=== PATIENT | female | born 1940 | race African-American/Black ===

== ENCOUNTER 2021-02-01 22:28 | Inpatient (IN) | payer OTHER, MEDICAID ==
[~2021-02-01] VITALS: Ht 165.1 cm; Wt 89.2 kg
[2021-02-01] MEDS ORDERED: SODIUM CHLORIDE 0.9% 1,000 ML IV ONE (23:15)
[2021-02-01] MEDS ORDERED: ASPIRIN 81MG TABLET PO ONE (23:30)
[2021-02-01] MEDS: NITROGLYCERIN 0.4MG TABLET SL SL PRN (23:52)
[2021-02-02] VITALS (10 sets, daily range): BP systolic 117–153; BP diastolic 53–81
[2021-02-02 00:11] LABS: BASOPHILS % 0.9 % (0.0-2.0); EOSINOPHILS % 0.9 % (0.0-5.0); HEMATOCRIT. 34.2 % (36.0-48.0); MEAN CORPUSCULAR HEMOGLOBIN 30.5 pg (28.0-32.0); MEAN CORPUSCULAR VOLUME 86.7 fL (81.0-99.0); MEAN PLATELET VOLUME 10.4 fl (7.4-10.4); MONOCYTES % 7.3 % (2.0-8.0); NEUTROPHILS % 48.9 % (40.0-76.0); PLATELET 224 x1000/uL (130-400); RED BLOOD CELL COUNT 3.94 mill/uL (4.2-5.4); RED CELL DISTRIBUTION WIDTH 15.3 % (11.6-14.6)
[2021-02-02 00:25] LABS: CHLORIDE 110 mEq/L (98-107)
[2021-02-02 00:30] LABS: D-DIMER 8.43 mg/L FEU (<0.50); PARTIAL THROMBOPLASTIN TIME 27.2 sec (23.4-31.0); PROTHROMBIN TIME 10.3 sec (9.6-11.0)
[2021-02-02 00:33] LABS: BETA HYDROXYBUTYRATE 0.1 mMol/L (0.0-0.3)
[2021-02-02] MEDS ORDERED: ENOXAPARIN 80MG/0.8ML SYR SUBCUT ONE (01:15)
[2021-02-02] MEDS ORDERED: GUAIFENESIN 200MG/10ML SUGAR FREE UDC PO PRN (02:45)
[2021-02-02] MEDS ORDERED: CLONIDINE 0.1MG TABLET PO PRN (02:45)
[2021-02-02] MEDS ORDERED: DIPHENHYDRAMINE 50MG/ML VIAL IV PRN (02:45)
[2021-02-02] MEDS ORDERED: ACETAMINOPHEN 325MG TABLET PO PRN (02:45)
[2021-02-02] MEDS ORDERED: ZOLPIDEM TARTRATE 5MG TABLET PO PRN (02:45)
[2021-02-02] MEDS ORDERED: DEXTROSE 50% WATER 50ML SYRINGE IV PRN (02:45)
[2021-02-02] MEDS ORDERED: MAGNESIUM/ALUMINUM HYDROXIDE/SIMETHICONE 30ML UDC PO PRN (02:45)
[2021-02-02] MEDS ORDERED: ONDANSETRON HCL 4MG/2ML INJ IV PRN (02:45)
[2021-02-02] MEDS ORDERED: HYDRALAZINE 20MG/ML VIAL IV PRN (02:45)
[2021-02-02] MEDS: OMEPRAZOLE 20MG CAPSULE EXTENDED RELEASE PO SCH ×2 (06:30→21:00)
[2021-02-02] MEDS: BLOOD SUGAR DIAGNOSTIC STRIP TEST SCH ×4 (06:30→21:52)
[2021-02-02] MEDS: SODIUM CHLORIDE 0.9% INJ 3ML FLUSH IVF SCH ×3 (06:30→22:29)
[2021-02-02] MEDS: INSULIN LISPRO 100 UNITS/ML SUBCUT SCH ×4 (07:52→21:00)
[2021-02-02] MEDS: AMLODIPINE 5MG TABLET PO SCH ×2 (08:44→21:00)
[2021-02-02] MEDS ORDERED: ENOXAPARIN 30MG/0.3ML SYR SUBCUT SCH (09:00)
[2021-02-02] MEDS ORDERED: IOHEXOL-350 100 ML BOTTLE ONE (09:46)
[2021-02-02] MEDS: INSULIN GLARGINE UD 100 UNITS/ML SYR SUBCUT SCH (10:51)
[2021-02-02] MEDS: LOSARTAN POTASSIUM 50 MG TABLET PO SCH (10:52)
[2021-02-02] MEDS: ASPIRIN 81MG EC TABLET PO SCH (11:50)
[2021-02-02] MEDS: METOPROLOL TARTRATE 25MG TABLET PO SCH ×2 (11:51→21:00)
[2021-02-02] MEDS ORDERED: ENOXAPARIN 30MG/0.3ML SYR SUBCUT NR (12:00)
[2021-02-02] MEDS ORDERED: METF-414 MT (16:19)
[2021-02-02] MEDS ORDERED: METO-385 MT (16:22)
[2021-02-02] MEDS ORDERED: KEPP500 MT (16:22)
[2021-02-02] MEDS ORDERED: LEVETIRACETAM 500MG TABLET PO NR (16:45)
[2021-02-02] MEDS: ATORVASTATIN CALCIUM 40MG TABLET PO SCH (21:00)
[2021-02-02] MEDS: LEVETIRACETAM 500MG TABLET PO SCH (21:00)
[2021-02-03] VITALS (12 sets, daily range): BP systolic 120–150; BP diastolic 57–83
[2021-02-03] MEDS: OMEPRAZOLE 20MG CAPSULE EXTENDED RELEASE PO SCH ×2 (06:39→20:38)
[2021-02-03] MEDS: SODIUM CHLORIDE 0.9% INJ 3ML FLUSH IVF SCH ×3 (06:39→22:59)
[2021-02-03] MEDS: BLOOD SUGAR DIAGNOSTIC STRIP TEST SCH ×4 (06:49→20:42)
[2021-02-03] MEDS: INSULIN LISPRO 100 UNITS/ML SUBCUT SCH ×4 (08:35→20:41)
[2021-02-03] MEDS: ENOXAPARIN 100MG/ML SYR SUBCUT SCH ×2 (08:36→20:41)
[2021-02-03] MEDS: ACETAMINOPHEN 325MG TABLET PO PRN (08:37)
[2021-02-03] MEDS: LEVETIRACETAM 500MG TABLET PO SCH ×2 (08:37→20:38)
[2021-02-03] MEDS: ASPIRIN 81MG EC TABLET PO SCH (08:37)
[2021-02-03] MEDS: LOSARTAN POTASSIUM 50 MG TABLET PO SCH (08:38)
[2021-02-03] MEDS: AMLODIPINE 5MG TABLET PO SCH ×2 (08:39→20:39)
[2021-02-03] MEDS: METOPROLOL TARTRATE 25MG TABLET PO SCH ×2 (08:39→20:39)
[2021-02-03] MEDS: INSULIN GLARGINE UD 100 UNITS/ML SYR SUBCUT SCH (10:00)
[2021-02-03] MEDS: ATORVASTATIN CALCIUM 40MG TABLET PO SCH (20:38)
[2021-02-04] VITALS (21 sets, daily range): BP systolic 101–147; BP diastolic 54–84
[2021-02-04] MEDS: SODIUM CHLORIDE 0.9% INJ 3ML FLUSH IVF SCH ×2 (06:43→14:08)
[2021-02-04] MEDS: OMEPRAZOLE 20MG CAPSULE EXTENDED RELEASE PO SCH ×2 (06:43→20:34)
[2021-02-04] MEDS: BLOOD SUGAR DIAGNOSTIC STRIP TEST SCH ×4 (06:43→20:24)
[2021-02-04 06:46] LABS: BASOPHILS % 0.3 % (0.0-2.0); HEMATOCRIT. 35.6 % (36.0-48.0); LYMPHOCYTES % 39.8 % (20.0-50.0); MEAN CORPUSCULAR VOLUME 86.2 fL (81.0-99.0); MEAN PLATELET VOLUME 10.4 fl (7.4-10.4); MONOCYTES % 10.2 % (2.0-8.0); NEUTROPHILS % 48.7 % (40.0-76.0); PLATELET 206 x1000/uL (130-400); RED BLOOD CELL COUNT 4.13 mill/uL (4.2-5.4); RED CELL DISTRIBUTION WIDTH 15.2 % (11.6-14.6)
[2021-02-04] MEDS: ENOXAPARIN 100MG/ML SYR SUBCUT SCH ×2 (08:35→20:35)
[2021-02-04] MEDS: LOSARTAN POTASSIUM 50 MG TABLET PO SCH (08:36)
[2021-02-04] MEDS: ACETAMINOPHEN 325MG TABLET PO PRN ×2 (08:36→17:04)
[2021-02-04] MEDS: ASPIRIN 81MG EC TABLET PO SCH (08:36)
[2021-02-04] MEDS: LEVETIRACETAM 500MG TABLET PO SCH ×2 (08:37→20:34)
[2021-02-04] MEDS: METOPROLOL TARTRATE 25MG TABLET PO SCH ×2 (08:37→20:35)
[2021-02-04] MEDS: AMLODIPINE 5MG TABLET PO SCH ×2 (08:37→20:34)
[2021-02-04] MEDS: INSULIN LISPRO 100 UNITS/ML SUBCUT SCH ×4 (08:38→20:31)
[2021-02-04] MEDS ORDERED: INSULIN GLARGINE UD 100 UNITS/ML SYR SUBCUT SCH (13:00)
[2021-02-04] MEDS: ATORVASTATIN CALCIUM 40MG TABLET PO SCH (20:33)
[2021-02-04] MEDS: NITROGLYCERIN 0.4MG TABLET SL SL PRN (21:55)
== END 2021-02-04 23:26 | disposition short-term general hospital (02) | DRG 281 ==
LOC: ER 22:28 → 3WST 02-02 01:25 → ENRESERV 02-02 02:16
PROVIDERS: ADMIT Internal Medicine; ATTEND Internal Medicine
DX: I21.4 Non-ST elevation (NSTEMI) myocardial infarction (principal); N17.9 Acute kidney failure, unspecified; E11.65 Type 2 diabetes mellitus with hyperglycemia; E04.1 Nontoxic single thyroid nodule; E66.9 Obesity, unspecified; R59.0 Localized enlarged lymph nodes; G40.909 Epilepsy, unspecified, not intractable, without status epilepticus; Z20.822 Contact with and (suspected) exposure to COVID-19; R07.89 Other chest pain; I11.9 Hypertensive heart disease without heart failure; N20.0 Calculus of kidney; N28.89 Other specified disorders of kidney and ureter; Z82.49 Family history of ischemic heart disease and other diseases of the circulatory system; Z83.3 Family history of diabetes mellitus; Z68.32 Body mass index [BMI] 32.0-32.9, adult
CPT/HCPCS: 36415; 71045; 71275; 80048; 80053; 82010; 82962; 83036; 83880; 84484; 85025; 85379; 87426; 93005; 93306; 99291; J1650; J1815; J7030; Q9967

== ENCOUNTER 2021-04-18 10:54 | Emergency (ER) | payer OTHER, MEDICAID ==
[~2021-04-18] VITALS: Ht 165.1 cm; Wt 59.0 kg
[~2021-04-18 10:54] MED LIST: KEPP500 MT; METF-414 MT; METO-385 MT
[2021-04-18 12:15] LABS: BASOPHILS % 0.7 % (0.0-2.0); CHLORIDE 108 mEq/L (98-107); EOSINOPHILS % 0.8 % (0.0-5.0); HEMATOCRIT. 35.5 % (36.0-48.0); HEMOGLOBIN. 12.1 g/dL (12.0-16.0); LYMPHOCYTES % 28.3 % (20.0-50.0); MEAN CORPUSCULAR VOLUME 88.2 fL (81.0-99.0); MEAN PLATELET VOLUME 9.8 fl (7.4-10.4); MONOCYTES % 6.5 % (2.0-8.0); NEUTROPHILS % 63.7 % (40.0-76.0); PLATELET 314 x1000/uL (130-400); RED BLOOD CELL COUNT 4.03 mill/uL (4.2-5.4); RED CELL DISTRIBUTION WIDTH 15.6 % (11.6-14.6)
[2021-04-18 12:18] LABS: PROTHROMBIN TIME 10.9 sec (9.6-11.0)
[2021-04-18 13:05] LABS: CLARITY URINE CLEAR (CLEAR); COLOR URINE YELLOW (YELLOW); KETONES URINE NEGATIVE (NEGATIVE); LEUKOCYTE ESTERASE URINE NEGATIVE (NEGATIVE); NITRITE URINE NEGATIVE (NEGATIVE); OCCULT BLOOD URINE NEGATIVE (NEGATIVE); PH URINE 5.5 (4.5-8.0); PROTEIN URINE 2+ (NEGATIVE); SPECIFIC GRAVITY URINE 1.021 (1.005-1.030); UROBILINOGEN URINE 0.2 E.U./dL (0.2-1.0)
[2021-04-18 13:33] LABS: PHENCYCLIDINE URINE SCREEN NEGATIVE (NEGATIVE)
[2021-04-18 13:34] LABS: *AMPHETAMINES SCREEN URINE NEGATIVE (NEGATIVE)
[2021-04-18 13:35] LABS: *BARBITURATES SCREEN URINE NEGATIVE (NEGATIVE); *BENZODIAZEPINES SCREEN URINE NEGATIVE (NEGATIVE); *COCAINE SCREEN URINE NEGATIVE (NEGATIVE); OPIATES URINE SCREEN PRESUMTIVE POSITIVE (NEGATIVE)
[2021-04-18 13:36] LABS: CANNABINOID URINE SCREEN NEGATIVE (NEGATIVE); METHADONE URINE SCREEN NEGATIVE (NEGATIVE)
[2021-04-18] MEDS ORDERED: KETOROLAC 30MG/ML VIAL IV ONE (14:45)
[2021-04-18] MEDS ORDERED: HYDR-4001 MT (14:46)
[2021-04-18 15:45] VITALS: BP 156/79
== END 2021-04-18 15:58 | disposition home or self-care (01) ==
LOC: ER 11:09 → CANBEDREQ 18:07
DX: R10.12 Left upper quadrant pain (principal); E11.9 Type 2 diabetes mellitus without complications; I10 Essential (primary) hypertension; F03.90 Unspecified dementia, unspecified severity, without behavioral disturbance, psychotic disturbance, mood disturbance, and anxiety; Z85.528 Personal history of other malignant neoplasm of kidney; Z90.5 Acquired absence of kidney; Z79.84 Long term (current) use of oral hypoglycemic drugs
CPT/HCPCS: 36415; 80053; 80305; 80320; 81003; 85025; 93005; 99285; G0480

== ENCOUNTER 2021-09-17 10:02 | Emergency (ER) | payer OTHER, MEDICAID ==
[~2021-09-17] VITALS: Ht 172.7 cm; Wt 105.0 kg
[~2021-09-17 10:02] MED LIST changes: +HYDR-4001 MT
[2021-09-17] MEDS ORDERED: HYDROCODONE/ACETAMINOPHEN 5/325MG TABLET PO ONE (10:30)
[2021-09-17] MEDS ORDERED: KETOROLAC 60MG/2ML VIAL IM ONE (12:30)
[2021-09-17 15:11] VITALS: BP 140/62
== END 2021-09-17 15:46 | disposition home or self-care (01) ==
LOC: ER 10:02
DX: H57.13 Ocular pain, bilateral (principal); I10 Essential (primary) hypertension; E11.9 Type 2 diabetes mellitus without complications; Z98.890 Other specified postprocedural states; Z86.73 Personal history of transient ischemic attack (TIA), and cerebral infarction without residual deficits
CPT/HCPCS: 96372; 99283; J1885

== ENCOUNTER 2022-01-06 18:56 | Inpatient (IN) | payer OTHER, MEDICAID ==
[~2022-01-06] VITALS: Ht 165.1 cm; Wt 73.5 kg
[2022-01-06] MEDS ORDERED: HYDRALAZINE 20MG/ML VIAL IV ONE (20:15)
[2022-01-06 21:19] LABS: BASOPHILS % 0.5 % (0.0-2.0); CHLORIDE 108 mEq/L (98-107); EOSINOPHILS % 1.6 % (0.0-5.0); HEMATOCRIT. 31.1 % (36.0-48.0); HEMOGLOBIN. 10.3 g/dL (12.0-16.0); LYMPHOCYTES % 29.5 % (20.0-50.0); MEAN CORPUSCULAR HEMOGLOBIN 28.4 pg (28.0-32.0); MEAN CORPUSCULAR VOLUME 85.9 fL (81.0-99.0); MEAN PLATELET VOLUME 9.7 fl (7.4-10.4); MONOCYTES % 9.4 % (2.0-8.0); PLATELET 230 x1000/uL (130-400); RED BLOOD CELL COUNT 3.62 mill/uL (4.2-5.4); RED CELL DISTRIBUTION WIDTH 15.9 % (11.6-14.6)
[2022-01-06 21:29] LABS: ETHANOL BLOOD < 10 mg/dL
[2022-01-06] MEDS ORDERED: ASPIRIN 81MG TABLET PO ONE (22:45)
[2022-01-07] MEDS ORDERED: HYDROCODONE/ACETAMINOPHEN 10/325MG TABLET PO SCH (06:45)
[2022-01-07] MEDS ORDERED: ONDANSETRON HCL 4MG/2ML INJ IV PRN (09:15)
[2022-01-07] MEDS: ACETAMINOPHEN 325MG TABLET PO PRN ×2 (10:14→18:27)
[2022-01-07] MEDS: AMLODIPINE 10MG TABLET PO SCH (10:15)
[2022-01-07] MEDS: SODIUM CHLORIDE 0.45% 1,000 ML IV SCH (10:26)
[2022-01-07 13:29] LABS: *AMPHETAMINES SCREEN URINE NEGATIVE (NEGATIVE); *BARBITURATES SCREEN URINE NEGATIVE (NEGATIVE); *BENZODIAZEPINES SCREEN URINE NEGATIVE (NEGATIVE); *COCAINE SCREEN URINE NEGATIVE (NEGATIVE); CANNABINOID URINE SCREEN NEGATIVE (NEGATIVE); METHADONE URINE SCREEN NEGATIVE (NEGATIVE); OPIATES URINE SCREEN PRESUMTIVE POSITIVE (NEGATIVE); PHENCYCLIDINE URINE SCREEN NEGATIVE (NEGATIVE)
[2022-01-07] MEDS ORDERED: AMLO10TA80 MT (16:19)
[2022-01-07 16:54] VITALS: BP 121/70
[2022-01-07 16:57] VITALS: BP 121/70
[2022-01-07 20:00] VITALS: BP 142/79
[2022-01-07] MEDS ORDERED: DEXTROSE 50% WATER 50ML SYRINGE IV PRN (20:30)
[2022-01-07] MEDS: BLOOD SUGAR DIAGNOSTIC STRIP TEST SCH (21:00)
[2022-01-07] MEDS: INSULIN LISPRO 100 UNITS/ML SUBCUT SCH (21:10)
[2022-01-07] MEDS: TRAMADOL 50MG TABLET PO PRN (21:13)
[2022-01-07 23:14] LABS: CLARITY URINE CLEAR (CLEAR); COLOR URINE YELLOW (YELLOW); KETONES URINE NEGATIVE (NEGATIVE); LEUKOCYTE ESTERASE URINE NEGATIVE (NEGATIVE); NITRITE URINE NEGATIVE (NEGATIVE); OCCULT BLOOD URINE NEGATIVE (NEGATIVE); PROTEIN URINE 2+ (NEGATIVE); SPECIFIC GRAVITY URINE 1.023 (1.005-1.030); UROBILINOGEN URINE 0.2 E.U./dL (0.2-1.0)
[2022-01-08] VITALS: BP 153/60
[2022-01-08 04:00] VITALS: BP 133/80
[2022-01-08] MEDS: SODIUM CHLORIDE 0.45% 1,000 ML IV SCH (04:42)
[2022-01-08] MEDS: TRAMADOL 50MG TABLET PO PRN ×2 (04:47→14:36)
[2022-01-08] MEDS: BLOOD SUGAR DIAGNOSTIC STRIP TEST SCH ×2 (06:02→12:31)
[2022-01-08] MEDS: INSULIN LISPRO 100 UNITS/ML SUBCUT SCH ×2 (07:00→12:40)
[2022-01-08 08:00] VITALS: BP 127/82
[2022-01-08] MEDS: AMLODIPINE 10MG TABLET PO SCH (09:08)
[2022-01-08 12:00] VITALS: BP 141/79
[2022-01-08 12:50] VITALS: BP 141/79
== END 2022-01-08 15:30 | disposition home or self-care (01) | DRG 280 ==
LOC: ER 18:56 → MICUSO 22:47 → 7WST 01-07 16:43
PROVIDERS: ADMIT Internal Medicine; ATTEND Internal Medicine
DX: I16.0 Hypertensive urgency (principal); I21.4 Non-ST elevation (NSTEMI) myocardial infarction; J96.00 Acute respiratory failure, unspecified whether with hypoxia or hypercapnia; N17.9 Acute kidney failure, unspecified; D64.9 Anemia, unspecified; G90.8 Other disorders of autonomic nervous system; E11.42 Type 2 diabetes mellitus with diabetic polyneuropathy; I12.9 Hypertensive chronic kidney disease with stage 1 through stage 4 chronic kidney disease, or unspecified chronic kidney disease; N18.9 Chronic kidney disease, unspecified; E11.22 Type 2 diabetes mellitus with diabetic chronic kidney disease; F03.90 Unspecified dementia, unspecified severity, without behavioral disturbance, psychotic disturbance, mood disturbance, and anxiety; Z86.73 Personal history of transient ischemic attack (TIA), and cerebral infarction without residual deficits; Z85.9 Personal history of malignant neoplasm, unspecified
CPT/HCPCS: 36415; 71045; 80053; 80305; 80320; 81003; 82962; 83036; 83605; 83880; 84484; 85025; 97162; 99291; J0360; J1815; G0480

== ENCOUNTER 2022-08-27 05:14 | Inpatient (IN) | payer OTHER, MEDICAID ==
[~2022-08-27] VITALS: Ht 153.7 cm; Wt 73.7 kg
[~2022-08-27 05:14] MED LIST changes: +AMLO10TA80 MT; -METF-414 MT
[2022-08-27] MEDS ORDERED: MORPHINE SULFATE 4 MG/ML CPJ (NOT FOR IM USE) IV STA (07:12)
[2022-08-27] MEDS ORDERED: ONDANSETRON HCL 4MG/2ML INJ IV STA (07:12)
[2022-08-27] MEDS ORDERED: SODIUM CHLORIDE 0.9% 1,000 ML IV ONE (07:15)
[2022-08-27 08:10] LABS: HEMATOCRIT. 34.8 % (36.0-48.0); HEMOGLOBIN. 11.6 g/dL (12.0-16.0); MEAN CORPUSCULAR HEMOGLOBIN 30.2 pg (28.0-32.0); MEAN PLATELET VOLUME 9.4 fl (7.4-10.4); PLATELET 344 x1000/uL (130-400); RED BLOOD CELL COUNT 3.83 mill/uL (4.2-5.4); RED CELL DISTRIBUTION WIDTH 20.6 % (11.6-14.6)
[2022-08-27 08:13] LABS: CHLORIDE 112 mEq/L (98-107)
[2022-08-27 08:45] LABS: PLATELET ESTIMATE NORMAL
[2022-08-27 08:46] LABS: CLARITY URINE CLEAR (CLEAR); COLOR URINE YELLOW (YELLOW); KETONES URINE NEGATIVE (NEGATIVE); LEUKOCYTE ESTERASE URINE NEGATIVE (NEGATIVE); NITRITE URINE NEGATIVE (NEGATIVE); OCCULT BLOOD URINE TRACE (NEGATIVE); PH URINE 5.5 (4.5-8.0); PROTEIN URINE 2+ (NEGATIVE); SPECIFIC GRAVITY URINE 1.014 (1.005-1.030); UROBILINOGEN URINE 0.2 E.U./dL (0.2-1.0)
[2022-08-27] MEDS ORDERED: METRONIDAZOLE 500 MG PREMIX 100 ML IV ONE (10:00)
[2022-08-27] MEDS ORDERED: LEVOFLOXACIN 750MG PREMIX 150 ML IV ONE (10:00)
[2022-08-27] MEDS ORDERED: MORPHINE SULFATE 4 MG/ML CPJ (NOT FOR IM USE) IV NR (10:45)
[2022-08-27] MEDS ORDERED: ONDANSETRON HCL 4MG/2ML INJ IV NR (10:45)
[2022-08-27] MEDS ORDERED: MAGNESIUM/ALUMINUM HYDROXIDE/SIMETHICONE 30ML UDC PO PRN (11:15)
[2022-08-27] MEDS ORDERED: NA PHOS,M-B/NA PHOS,DI-BA ENEMA 118ML PR PRN (11:15)
[2022-08-27] MEDS ORDERED: GUAIFENESIN 200MG/10ML SUGAR FREE UDC PO PRN (11:15)
[2022-08-27] MEDS ORDERED: ACETAMINOPHEN 325MG TABLET PO PRN ×2 (11:15)
[2022-08-27] MEDS ORDERED: ONDANSETRON HCL 4MG/2ML INJ IV PRN (11:15)
[2022-08-27] MEDS ORDERED: DOCUSATE SODIUM 100MG CAPSULE PO PRN (11:15)
[2022-08-27] MEDS ORDERED: CLONIDINE 0.1MG TABLET PO PRN (11:15)
[2022-08-27] MEDS ORDERED: DEXTROSE 50% WATER 50ML SYRINGE IV PRN (11:15)
[2022-08-27] MEDS ORDERED: NITROGLYCERIN 0.4MG TABLET SL SL PRN (11:15)
[2022-08-27] MEDS ORDERED: IPRATROPIUM/ALBUTEROL 0.5-3(2.5)MG/3ML NEB NEB PRN (11:15)
[2022-08-27] MEDS ORDERED: ENOXAPARIN 80MG/0.8ML SYR SUBCUT NR (12:00)
[2022-08-27 15:07] LABS: T4 FREE 0.94 ng/dL (0.76-1.46)
[2022-08-27 15:26] LABS: FOLIC ACID (FOLATE) SERUM 4.5 ng/mL (>5.38)
[2022-08-27 15:57] LABS: PROTHROMBIN TIME 10.4 sec (9.6-11.0)
[2022-08-27 16:09] LABS: CREATINE KINASE MB FRACTION 1.4 ng/mL (0.5-3.6)
[2022-08-27] MEDS: BLOOD SUGAR DIAGNOSTIC STRIP TEST SCH ×2 (19:52→21:16)
[2022-08-27] MEDS: INSULIN LISPRO 100 UNITS/ML SUBCUT SCH ×2 (20:02→21:00)
[2022-08-27 21:00] VITALS: BP 128/72
[2022-08-27] MEDS ORDERED: ZOLPIDEM TARTRATE 5MG TABLET PO PRN (21:00)
[2022-08-27] MEDS ORDERED: FAMOTIDINE 20MG TABLET PO SCH (21:00)
[2022-08-27] MEDS ORDERED: NALOXONE HCL 0.4MG/ML VIAL IV PRN (21:15)
[2022-08-27] MEDS ORDERED: ALBUTEROL (0.083%) 2.5MG/3ML NEB HHN PRN (21:15)
[2022-08-27] MEDS ORDERED: IPRATROPIUM BROMIDE (0.02%) 0.5MG/2.5ML NEB HHN PRN (21:15)
[2022-08-27] MEDS: ENOXAPARIN 80MG/0.8ML SYR SUBCUT SCH (21:20)
[2022-08-27] MEDS: TRAMADOL 50MG TABLET PO PRN (21:20)
[2022-08-27] MEDS: ASCORBIC ACID 500 MG TABLET PO SCH (21:21)
[2022-08-27 22:51] VITALS: BP 128/72
[2022-08-27] MEDS ORDERED: ATOR40TA70 MT (23:41)
[2022-08-27] MEDS ORDERED: HYDR-4009 MT (23:41)
[2022-08-28] VITALS (7 sets, daily range): BP systolic 107–139; BP diastolic 59–72
[2022-08-28 00:40] LABS: CREATINE KINASE MB FRACTION 1.6 ng/mL (0.5-3.6)
[2022-08-28] MEDS: BLOOD SUGAR DIAGNOSTIC STRIP TEST SCH ×4 (06:43→20:10)
[2022-08-28] MEDS: INSULIN LISPRO 100 UNITS/ML SUBCUT SCH ×4 (06:43→20:22)
[2022-08-28 06:44] LABS: BASOPHILS % 0.2 % (0.0-2.0); EOSINOPHILS % 0.7 % (0.0-5.0); HEMATOCRIT. 30.9 % (36.0-48.0); HEMOGLOBIN. 10.3 g/dL (12.0-16.0); LYMPHOCYTES % 40.2 % (20.0-50.0); MEAN CORPUSCULAR HEMOGLOBIN 30.1 pg (28.0-32.0); MEAN CORPUSCULAR VOLUME 90.3 fL (81.0-99.0); MEAN PLATELET VOLUME 9.3 fl (7.4-10.4); MONOCYTES % 8.3 % (2.0-8.0); NEUTROPHILS % 50.6 % (40.0-76.0); PLATELET 277 x1000/uL (130-400); RED BLOOD CELL COUNT 3.42 mill/uL (4.2-5.4); RED CELL DISTRIBUTION WIDTH 20.1 % (11.6-14.6)
[2022-08-28 06:48] LABS: CHLORIDE 114 mEq/L (98-107)
[2022-08-28 06:55] LABS: PHOSPHORUS 3.5 mg/dL (2.5-4.9)
[2022-08-28] MEDS: ASCORBIC ACID 500 MG TABLET PO SCH (08:49)
[2022-08-28] MEDS ORDERED: ZINC SULFATE 220 MG ( 50 ) CAPSULE PO SCH (09:00)
[2022-08-28] MEDS ORDERED: ASPIRIN 325MG EC TABLET PO SCH (09:00)
[2022-08-28] MEDS ORDERED: AMLODIPINE 10MG TABLET PO SCH (09:00)
[2022-08-28] MEDS: TRAMADOL 50MG TABLET PO PRN ×2 (10:39→20:20)
[2022-08-28] MEDS ORDERED: PNEUMOCOCCAL 23-VAL P-SAC VAC 0.5 ML IM ONE (11:00)
[2022-08-28] MEDS ORDERED: INFLUENZA VACCINE 05/PF 0.5 ML SYRINGE IM ONE (11:00)
[2022-08-28 14:52] LABS: *AMPHETAMINES SCREEN URINE NEGATIVE (NEGATIVE); *BARBITURATES SCREEN URINE NEGATIVE (NEGATIVE); *BENZODIAZEPINES SCREEN URINE NEGATIVE (NEGATIVE); *COCAINE SCREEN URINE NEGATIVE (NEGATIVE); CANNABINOID URINE SCREEN NEGATIVE (NEGATIVE); METHADONE URINE SCREEN NEGATIVE (NEGATIVE); OPIATES URINE SCREEN PRESUMTIVE POSITIVE (NEGATIVE); PHENCYCLIDINE URINE SCREEN NEGATIVE (NEGATIVE)
[2022-08-28] MEDS: ENOXAPARIN 80MG/0.8ML SYR SUBCUT SCH (17:36)
[2022-08-28] MEDS ORDERED: ATORVASTATIN CALCIUM 40MG TABLET PO SCH (21:00)
== END 2022-08-28 20:30 | disposition short-term general hospital (02) | DRG 280 ==
LOC: ER 05:14 → EDBEDREQ 10:29 → EDBEDREQTM 10:29 → MICUSO 11:33 → 7EST 20:40
PROVIDERS: ADMIT Internal Medicine; ATTEND Internal Medicine
DX: I21.4 Non-ST elevation (NSTEMI) myocardial infarction (principal); I50.21 Acute systolic (congestive) heart failure; N17.0 Acute kidney failure with tubular necrosis; I13.0 Hypertensive heart and chronic kidney disease with heart failure and stage 1 through stage 4 chronic kidney disease, or unspecified chronic kidney disease; D63.8 Anemia in other chronic diseases classified elsewhere; Z20.822 Contact with and (suspected) exposure to COVID-19; N18.9 Chronic kidney disease, unspecified; F03.90 Unspecified dementia, unspecified severity, without behavioral disturbance, psychotic disturbance, mood disturbance, and anxiety; E78.00 Pure hypercholesterolemia, unspecified; E11.22 Type 2 diabetes mellitus with diabetic chronic kidney disease; Z79.4 Long term (current) use of insulin; Z86.16 Personal history of COVID-19; Z87.01 Personal history of pneumonia (recurrent); Z85.528 Personal history of other malignant neoplasm of kidney; Z86.73 Personal history of transient ischemic attack (TIA), and cerebral infarction without residual deficits; Z90.5 Acquired absence of kidney
CPT/HCPCS: 36415; 71045; 74176; 76770; 80053; 80061; 80305; 81003; 82550; 82553; 82607; 82746; 82962; 83036; 83540; 83550; 83605; 83735; 84100; 84145; 84439; 84443; 84484; 85025; 87426; 93005; 93306; 93970; 99291; C1893; J1650; J1815; J1956; J2270; J2405; J3490; J7030